=== PATIENT | female | born 1990 | race African-American/Black ===

== ENCOUNTER 2017-04-26 19:50 | Emergency (ER) | payer OTHER ==
[~2017-04-26] VITALS: Ht 172.7 cm; Wt 72.0 kg
[~2017-04-26 19:50] MED LIST: FERR-55 PO; PREN-46 PO
[2017-04-26 19:58] VITALS: Ht 172.7 cm; Wt 72.0 kg
[2017-04-26] MEDS ORDERED: LIDOCAINE/MYLANTA 40 ML BTL PO ONE (21:30)
--- NOTE | 2017-04-26 21:53 | ERD ---
ER Documentation Chief Complaint Date/Time DATE: 04/26/17 TIME: 21:52 Chief Complaint epigastric pain radaitring to right back HPI 26-year-old female presents here in emergency department for complaints of epigastric pain radiating to the back started 2 days ago. Patient describes the pain as sharp pain, 6/10 scale, not better with anything, it radiates in the mid chest area. Patient has history of Crohn's disease. Patient is also complain of right lower quadrant abdominal pain sharp pain, 6/10 scale, accompanying of his symptoms. Patient did not take any medications to symptoms. Patient denies any fever or chills. Patient denies any diarrhea or constipation. ROS All systems reviewed and are negative except as per history of present illness. Medications Home Meds Reported Medications Ferrous Sulfate* (Ferrous Sulfate*) 325 Mg Tablet, 325 MG PO 04/27/13 Vit #108/Iron/Fa ( ONE TABLET) 1 Each Tablet, 1 EACH PO D 04/27/13 Allergies Allergies: Coded Allergies: No Known Drug Allergies (Verified Allergy, Unknown, 04/27/13) PMhx/Soc Medical and Surgical Hx: pt denies Surgical Hx Hx Miscellaneous Medical Probl: Yes (Crohn's ) Hx Alcohol Use: No Hx Substance Use: No Hx Tobacco Use: No Smoking Status: Never smoker FmHx Family History: No coronary disease, No diabetes, No other Physical Exam Vitals Vital Signs Date Time Temp Pulse Resp B/P Pulse Ox O2 Delivery O2 Flow Rate FiO2 04/26/17 19:58 98.6 82 20 173/80 100 Physical Exam GENERAL: The patient is well developed and appropriate for usual state of health, in no apparent distress. CHEST: Clear to auscultation bilaterally. There are no rales, wheezes or rhonchi. HEART: Regular rate and rhythm. No murmurs, clicks, rubs or gallops. No S3 or S4. ABDOMEN: Soft, nontender and nondistended. Good bowel sounds. No rebound or guarding. No gross peritonitis. No gross organomegaly or masses. No Castillo sign or McBurney point tenderness. BACK: No midline or flank tenderness. EXTREMITIES: Equal pulses bilaterally. There is no peripheral clubbing, cyanosis or edema. No focal swelling or erythema. Full range of motion. Grossly neurovascularly intact. NEURO: Alert and oriented. Cranial nerves 2-12 intact. Motor strength in all 4 extremities with 5/5 strength. Sensation grossly intact. Normal speech and gait. SKIN: There is no apparent rash or petechia. The skin is warm and dry. HEMATOLOGIC AND LYMPHATIC: There is no evidence of excessive bruising or lymphedema. No gross cervical, axillary, or inguinal lymphadenopathy. Result Diagram: 04/26/17214604/26/172146 Results 24 hrs Laboratory Tests Test 04/26/17 21:47 White Blood Count 3.710^3/ul Red Blood Count 4.6210^6/ul Hemoglobin 11.9g/dl Hematocrit 38.4% Mean Corpuscular Volume 83.1fl Mean Corpuscular Hemoglobin 25.8pg Mean Corpuscular Hemoglobin Concent 31.0g/dl Red Cell Distribution Width 16.5% Platelet Count 21567^3/UL Mean Platelet Volume 9.5fl Neutrophils % 45.5% Lymphocytes % 39.7% Monocytes % 13.7% Eosinophils % 0.5% Basophils % 0.3% Nucleated Red Blood Cells % 0.0/100WBC Neutrophils # 1.710^3/ul Lymphocytes # 1.510^3/ul Monocytes # 0.510^3/ul Eosinophils # 0.010^3/ul Basophils # 0.010^3/ul Nucleated Red Blood Cells # 0.010^3/ul Urine Color LT. YELLOW Urine Clarity CLEAR Urine pH 6.0 Urine Specific [place] <=1.005 Urine Ketones NEGATIVE Urine Nitrite NEGATIVE Urine Bilirubin NEGATIVE Urine Urobilinogen 0.2 E.U./dL Urine Leukocyte Esterase NEGATIVE Urine Microscopic RBC 0-2/HPF Urine Microscopic WBC 2-5/HPF Urine Squamous Epithelial Cells MANY Urine Bacteria RARE Urine Hemoglobin TRACE Urine Glucose NEGATIVE% Urine Total Protein NEGATIVE Sodium Level 144mmol/L Potassium Level 3.8mmol/L Chloride Level 109mmol/L Carbon Dioxide Level 24mmol/L Anion Gap 15 Blood Urea Nitrogen 8mg/dl Creatinine 0.79mg/dl Glucose Level 84mg/dl Calcium Level 9.2mg/dl Total Bilirubin 0.0mg/dl Direct Bilirubin 0.00mg/dl Indirect Bilirubin 0.0mg/dl Aspartate Amino Transf (AST/SGOT) 22IU/L Alanine Aminotransferase (ALT/SGPT) 30IU/L Alkaline Phosphatase 61IU/L Total Protein 7.3g/dl Albumin 4.2g/dl Globulin 3.10g/dl Albumin/Globulin Ratio 1.35 Lipase 39U/L Current Medications Medications (Trade) Dose Ordered Sig/[place] Route PRN Reason Start Time Stop Time Status Last Admin Dose Admin Miscellaneous Medication (Gi Cocktail (2)) 40 ml ONCE ONCE PO 04/26/17 21:30 04/26/17 21:31 DC 04/26/17 21:45 GI cocktail given here in emergency department. EKG was done, read by me and is normal sinus rhythm at a rate of 55, normal axis , there is no ST changes or changes in the EKG that indicates any cardiac emergencies at this time. Patient's EKG was also reviewed by Dr. Mahoney. Impression: no acute findings on EKG PROCEDURE: CT ABDOMEN/PELVIS WITHOUT CONTRAST CLINICAL INDICATION: 26-year-old female with abdominal pain. TECHNIQUE: The study was performed utilizing a [employer] VCT 64-slice CT scanner. Direct axial sections were obtained through the abdomen and pelvis without the use of intravenous contrast material. Sagittal and coronal reformations were obtained. One or more of the following dose reduction techniques were utilized: automated exposure control, adjustment of the mA and/ or kV according to patient's size or use of iterative reconstruction technique. The images were reviewed on a PACS workstation. CTD/vol = 8.7 mGy; Total Exam DLP = 446.1 mGy-cm. COMPARISON: None. FINDINGS: The lung bases are unremarkable. There is no evidence for significant pleural effusion. The liver has a normal size and contour without focal areas of abnormal density. No intrahepatic nor extrahepatic biliary ductal dilatation is seen. The gallbladder demonstrates no wall thickening nor pericholecystic fluid. No biliary stones are evident. The pancreas is without areas of abnormal attenuation. The spleen is identified and has a normal size without abnormal density. The adrenal glands are unremarkable. The kidneys are without abnormal density. No hydroureteronephrosis nor nephroureterolithiasis is evident. The urinary bladder contains urine. There is mild. Focal soft tissue infiltration. There is no evidence for bowel obstruction. The appendix is diminutive and is without abnormal thickening or surrounding inflammatory reaction. The uterus is anteflexed. There is mild pelvic free fluid. The aortoiliac vessels are without aneurysmal dilatation. The osseous structures are intact. IMPRESSION: 1. No CT evidence for obstructive uropathy or renal calculi. 2. Mild nonspecific umbilical soft tissue infiltration. Clinical correlation is necessary. 3. Diminutive appendix without periappendiceal inflammatory changes. 4. Mild pelvic free fluid. .Peewee Mayo MD, MD Date Time Electronically viewed and signed by .Peewee Mayo MD, MD on 04/26/2017 23:02 .M/ CC: ELEUTERIO VIZCARRA RN PSYCH PROCEDURE: CHEST - 1 VIEW CLINICAL INDICATION: 26-year-old female with chest/abdominal pain. TECHNIQUE: A single frontal PA erect view of the chest was performed. The images were reviewed on a PACS workstation. COMPARISON: None. FINDINGS: The cardiomediastinal silhouette has a normal appearance. There is no evidence for an infiltrate. The pulmonary vascularity is within normal limits. There is no evidence for pneumothorax or pneumomediastinum. The osseous structures are intact. IMPRESSION: No evidence for active cardiopulmonary disease. .Peewee Mayo MD, MD Date Time Electronically viewed and signed by .Peewee Mayo MD, MD on 04/26/2017 22:47 .M/ CC: ELEUTERIO VIZCARRA RN PSYCH Procedures/[facility] Medical Decision Making: Patient's epigastric pain nonspecific at this time, possibly from gastritis or acid reflux disease. Patient does not have any symptoms of any cardiopulmonary emergencies at this time. Patient's chest x- rays number, EKG does not show any changes indicating cardiac emergencies at this time. Lower abdominal pain nonspecific at this time, possible Crohn's flareup, can be also viral. There is low suspicion for abdominal emergencies at this time. Patients abdominal exam is normal at this time. Patients radiology exam does not show any abdominal emergencies at this time. There is low suspicion for appendicitis, cholecystitis, abdominal aortic aneurysms or peritonitis at this time. There is low suspicion for sepsis. Patient appears well and is hemodynamically stable. Disposition: Home. Condition: Stable Prescription omeprazole, Mylanta, [place] Instructions: Patient is advised to take medications as prescribed. Patient is advised to rest, increase fluid intake and do brat diet for next 1-2 days and progress as tolerated. Patient is advised that if symptoms are worse, severe abdominal pain, uncontrolled vomiting, high fever, severe flank pain, worst signs and symptoms, to return to the emergency department immediately. Otherwise, patient can follow up with primary care doctor in 5-7 days. Departure Diagnosis: Primary Impression: Abdominal pain Abdominal location: lower abdomen, unspecified Qualified Code: R10.30 - Lower abdominal pain Additional Impression: Atypical chest pain Condition: Stable Patient Instructions: Abdominal Pain, Chest Pain, Uncertain Cause, Epigastric Pain (Uncertain Cause) Additional Instructions: Patient is advised to take medications as prescribed. Patient is advised to rest , increase fluid intake and do brat diet for next 1-2 days and progress as tolerated. Patient is advised that if symptoms are worse, severe abdominal pain , uncontrolled vomiting, high fever, severe flank pain, worst signs and symptoms , to return to the emergency department immediately. Otherwise, patient can follow up with primary care doctor in 5-7 days. ELEUTERIO VIZCARRA NP Apr 26, 2017 21:53
[2017-04-26 22:03] LABS: ADD SCAN DIFF NO
[2017-04-26 22:06] LABS: BASOPHILS % 0.3 % (0.0-2.0); EOSINOPHILS % 0.5 % (0.0-7.0); HEMATOCRIT 38.4 % (37.0-47.0); HEMOGLOBIN 11.9 g/dl (12.0-16.0); LYMPHOCYTES # 1.5 10^3/ul (0.8-2.9); LYMPHOCYTES % 39.7 % (15.0-51.0); MEAN CORPUSCULAR HEMOGLOBIN 25.8 pg (29.0-33.0); MEAN CORPUSCULAR VOLUME 83.1 fl (82.0-101.0); MEAN PLATELET VOLUME 9.5 fl (7.4-10.4); MONOCYTE # 0.5 10^3/ul (0.3-0.9); MONOCYTES % 13.7 % (0.0-11.0); NEUTROPHIL # 1.7 10^3/ul (1.6-7.5); NEUTROPHILS % 45.5 % (39.0-77.0); PLATELET COUNT 374 10^3/UL (140-415); RED BLOOD COUNT 4.62 10^6/ul (4.20-5.40); RED CELL DISTRIBUTION WIDTH 16.5 % (11.5-14.5); WHITE BLOOD COUNT 3.7 10^3/ul (4.8-10.8)
[2017-04-26 22:07] LABS: ADD UMIC YES; URINE BILIRUBIN (Dip) NEGATIVE (NEGATIVE); URINE BLOOD (Dip) TRACE (NEGATIVE); URINE COLOR LT. YELLOW (YELLOW); URINE GLUCOSE (Dip) NEGATIVE (NEGATIVE); URINE KETONES (Dip) NEGATIVE (NEGATIVE); URINE LEUKOCYTE ESTERASE (Dip) NEGATIVE (NEGATIVE); URINE NITRITE (Dip) NEGATIVE (NEGATIVE); URINE TOTAL PROTEIN (Dip) NEGATIVE (NEGATIVE); URINE UROBILINOGEN (Dip) 0.2 E.U./dL (0.1-1.0)
[2017-04-26 22:22] LABS: SQUAMOUS EPITHELIAL CELL,UR MANY; URINE RBCS 0-2 /HPF (0)
[2017-04-26 22:23] LABS: BACTERIA,URINE RARE
[2017-04-26 22:30] LABS: ALBUMIN/GLOBULIN RATIO 1.35
[2017-04-26 22:32] LABS: CALCIUM 9.2 mg/dl (8.4-10.2); CREATININE 0.79 mg/dl (0.44-1.00); POTASSIUM 3.8 mmol/L (3.5-5.1)
[2017-04-26 22:33] LABS: ALBUMIN 4.2 g/dl (3.3-4.9); TOTAL PROTEIN 7.3 g/dl (6.1-8.1)
--- NOTE | 2017-04-26 22:48 | RADRPT ---
PROCEDURE: CHEST - 1 VIEW CLINICAL INDICATION: 26-year-old female with chest/abdominal pain. TECHNIQUE: A single frontal PA erect view of the chest was performed. The images were reviewed on a PACS workstation. COMPARISON: None. FINDINGS: The cardiomediastinal silhouette has a normal appearance. There is no evidence for an infiltrate. T he pulmonary vascularity is within normal limits. There is no evidence for pneumothorax or pneumomed iastinum. The osseous structures are intact. IMPRESSION: No evidence for active cardiopulmonary disease. .Peewee Mayo MD, MD Date Time Electronically viewed and signed by .Peewee Mayo MD, on 04/26/2017 22:47 .M/
--- NOTE | 2017-04-26 23:02 | RADRPT ---
PROCEDURE: CT ABDOMEN/PELVIS WITHOUT CONTRAST CLINICAL INDICATION: 26-year-old female with abdominal pain. TECHNIQUE: The study was performed utilizing a [employer] VCT 64-slice CT scanner. Direct axia l sections were obtained through the abdomen and pelvis without the use of intravenous contrast mate rial. Sagittal and coronal reformations were obtained. One or more of the following dose reduction t echniques were utilized: automated exposure control, adjustment of the mA and/or kV according to pat ient's size or use of iterative reconstruction technique. The images were reviewed on a PACS workst at[employer]. CTD/vol = 8.7 mGy; Total Exam DLP = 446.1 mGy-cm. COMPARISON: None. FINDINGS: The lung bases are unremarkable. There is no evidence for significant pleural effusion. The liver has a normal size and contour without focal areas of abnormal density. No intrahepatic nor extrahepa tic biliary ductal dilatation is seen. The gallbladder demonstrates no wall thickening nor perichole cystic fluid. No biliary stones are evident. The pancreas is without areas of abnormal attenuation. The spleen is identified and has a normal size without abnormal density. The adrenal glands are unr emarkable. The kidneys are without abnormal density. No hydroureteronephrosis nor nephroureterolithi asis is evident. The urinary bladder contains urine. There is mild. Focal soft tissue infiltration. There is no evidence for bowel obstruction. The appendix is diminutive and is without abnormal thi ckening or surrounding inflammatory reaction. The uterus is anteflexed. There is mild pelvic free f luid. The aortoiliac vessels are without aneurysmal dilatation. The osseous structures are intact. IMPRESSION: 1. No CT evidence for obstructive uropathy or renal calculi. 2. Mild nonspecific umbilical soft tissue infiltration. Clinical correlation is necessary. 3. Diminutive appendix without periappendiceal inflammatory changes. 4. Mild pelvic free fluid. .Peewee Mayo MD, Date Time Electronically viewed and signed by .Peewee Mayo MD, MD on 04/26/2017 23:02 .Sherrie
[2017-04-26] MEDS ORDERED: MAG-19 PO (23:13)
[2017-04-26] MEDS ORDERED: OMEP20CA16 PO (23:13)
[2017-04-26] MEDS ORDERED: HYDR-906 PO (23:13)
== END 2017-04-26 23:33 | disposition left against medical advice (07) ==
LOC: FTE 19:50
DX: R10.30 Lower abdominal pain, unspecified (principal); R07.89 Other chest pain; R10.2 Pelvic and perineal pain
CPT/HCPCS: 36415; 71010; 74176; 80053; 81001; 83690; 85025; 93005; Z7502; Z7610

== ENCOUNTER 2017-08-19 11:05 | Emergency (ER) | payer SELFPAY ==
[~2017-08-19] VITALS: Wt 72.5 kg
[~2017-08-19 11:05] MED LIST changes: +HYDR-906 PO; +MAG-19 PO; +OMEP20CA16 PO
[2017-08-19] MEDS ORDERED: CIPR500T4 PO (15:22)
[2017-08-19] MEDS ORDERED: FAMO40TA38 PO (15:23)
[2017-08-19] MEDS ORDERED: ONDA4TAB14 PO (15:23)
[2017-08-19] MEDS ORDERED: PRED20TA PO (15:25)
[2017-08-19] MEDS ORDERED: SUCR1TAB56 PO (15:27)
== END 2017-08-19 12:29 | disposition left against medical advice (07) ==
LOC: FTE 11:05
DX: Z53.21 Procedure and treatment not carried out due to patient leaving prior to being seen by health care provider (principal)

== ENCOUNTER 2017-08-19 13:18 | Emergency (ER) | payer OTHER ==
[~2017-08-19] VITALS: Wt 72.0 kg
[2017-08-19] MEDS ORDERED: ONDANSETRON (ODT) 4 MG TAB ODT STA (14:35)
--- NOTE | 2017-08-19 14:35 | ERD ---
ER Documentation Chief Complaint Date/Time DATE: 08/19/17 TIME: 14:30 Chief Complaint ABD PAIN, NAUSEA, ONSET 3 DAYS HPI 27-year-old female who presents emergency department for generalized abdominal. No diarrhea for the last 24 hours. Vomited thrice for the last 24 hours with nonbloody and nonbilious emesis. LMP: 08/14/2017. A0. Denies headache, dizziness, blurry vision, neck pain, shoulder pain, chest pain , back pain, recent exposure to any illness, recent travel, recent use of antibiotics in the last 3 months, fever, chills. No known drug allergies. Past medical history of Crohn's disease. No surgeries. Does not take any prescription medication at home. Social: Not working at this time. Smokes 4-5 sticks of cigarettes a day. Denies use of alcohol, use of illegal drugs. ROS All systems reviewed and are negative except as per history of present illness. Medications Home Meds Active Scripts Sucralfate* (Carafate*) 1 Gm Tab, 1 GM PO BID, #60 TAB Prov:FLORY OLIVEIRA 08/19/17 Prednisone* (Prednisone*) 20 Mg Tab, 40 MG PO DAILY for 7 Days, TAB Prov:FLORY OLIVEIRA 08/19/17 Ondansetron (Ondansetron Odt) 4 Mg Tab.rapdis, 4 MG PO Q8 Y for NAUSEA AND/OR VOMITING, #20 TAB Prov:FLORY OLIVEIRA 08/19/17 Famotidine* (Pepcid*) 40 Mg Tablet, 40 MG PO DAILY, #30 TAB Prov:FLORY OLIVEIRA 08/19/17 Ciprofloxacin Hcl* (Ciprofloxacin Hcl*) 500 Mg Tablet, 500 MG PO BID for 7 Days , TAB Prov:FLORY OLIVEIRA 08/19/17 Hydrocodone/Acetaminophen ([place] 5-325 Tablet) 1 Each Tablet, 1 TAB PO Q6H Y for PAIN, #20 TAB Prov:ELEUTERIO VIZCARRA NP 04/26/17 Magaldrate/Simethicone* (Mylanta*) 355 Ml Susp, 30 ML PO QID Y for GASTROINTESTINAL UPSET, #1 BOTTLE Prov:ELEUTERIO VIZCARRA NP 04/26/17 Omeprazole* (Omeprazole*) 20 Mg Capsule., 20 MG PO DAILY, #30 Prov:ELEUTERIO VIZCARRA [employer] 04/26/17 Reported Medications Ferrous Sulfate* (Ferrous Sulfate*) 325 Mg Tablet, 325 MG PO 04/27/13 Vit #108/Iron/Fa ( ONE TABLET) 1 Each Tablet, 1 EACH PO D 04/27/13 Allergies Allergies: Coded Allergies: No Known Drug Allergies (Verified Allergy, Unknown, 04/27/13) PMhx/Soc Hx Miscellaneous Medical Probl: Yes (Crohn's ) Hx Alcohol Use: No Hx Substance Use: No Hx Tobacco Use: No Physical Exam Vitals Vital Signs Date Time Temp Pulse Resp B/P Pulse Ox O2 Delivery O2 Flow Rate FiO2 08/19/17 15:53 98.6 71 18 128/85 98 Room Air 08/19/17 13:21 98.6 102 17 139/85 98 Physical Exam Const: [] Head: Atraumatic Eyes: Normal Conjunctiva ENT: Normal External Ears, Nose and Mouth. Neck: Full range of motion..~ No meningismus. Resp: Clear to auscultation bilaterally Cardio: Regular rate and rhythm, no murmurs Abd: Soft, non tender, non distended. Normal bowel sounds. Active bowel sounds. There is no right upper/right lower/epigastric/left upper/left lower abdominal tenderness and light and deep palpation. Negative on Rovsing sign. Negative Pipo sign. Negative and psoas sign. Able to jump 10 times without developing abdominal pain. Able to walk across/inside the room 5 times without developing abdominal pain. No peritoneal signs. Skin: No petechiae or rashes Back: No midline or flank tenderness. No CVA tenderness. Ext: No cyanosis, or edema Neur: Awake and alert Psych: Normal Mood and Affect Results 24 hrs Laboratory Tests Test 08/19/17 14:42 Urine Color YELLOW Urine Clarity CLOUDY Urine pH 5.0 Urine Specific [place] 1.023 Urine Ketones NEGATIVEmg/dL Urine Nitrite NEGATIVEmg/dL Urine Bilirubin NEGATIVEmg/dL Urine Urobilinogen NEGATIVEmg/dL Urine Leukocyte Esterase NEGATIVELeu/ul Urine Microscopic RBC 1/HPF Urine Microscopic WBC 3/HPF Urine Squamous Epithelial Cells MODERATE/HPF Urine Mucus FEW/HPF Urine Hemoglobin NEGATIVEmg/dL Urine Glucose NEGATIVEmg/dL Urine Total Protein NEGATIVEmg/dl Current Medications Medications (Trade) Dose Ordered Sig/[place] Route PRN Reason Start Time Stop Time Status Last Admin Dose Admin Ondansetron HCl (Zofran Odt) 4 mg ONCE STAT ODT 08/19/17 14:35 08/19/17 14:37 DC 08/19/17 14:48 Miscellaneous Medication (Gi Cocktail (2)) 40 ml ONCE ONCE PO 08/19/17 15:00 08/19/17 15:01 DC 08/19/17 14:49 Procedures/MDM 27-year-old female who presents emergency department for generalized abdominal. No diarrhea for the last 24 hours. Vomited thrice for the last 24 hours with nonbloody and nonbilious emesis. LMP: 08/14/2017. A0. Denies headache, dizziness, blurry vision, neck pain, shoulder pain, chest pain , back pain, recent exposure to any illness, recent travel, recent use of antibiotics in the last 3 months, fever, chills. No known drug allergies. Past medical history of Crohn's disease. No surgeries. Does not take any prescription medication at home. Social: Not working at this time. Smokes 4-5 sticks of cigarettes a day. Denies use of alcohol, use of illegal drugs. Physical exam: Respirations even and unlabored. Lung sounds are clear to auscultation. Active bowel sounds. There is no right upper/right lower/ epigastric/left upper/left lower abdominal tenderness and light and deep palpation. Negative on Rovsing's sign. Negative Wrens sign. Negative and psoas sign. Able to jump 10 times without developing abdominal pain. Able to walk across/inside the room 5 times without developing abdominal pain. No peritoneal signs. No CVA tenderness. Disease process was explained to the patient. Patient verbalized understanding and agreed with the diagnostic test, treatment, plan of care. POC urine : Negative. Urinalysis: Negative. Treatment: Zofran ODT. GI cocktail. P.o. challenge. Reevaluation: Respirations even and unlabored. Lung sounds are clear to auscultation. Active bowel sounds. There is no right upper/right lower/ epigastric/left upper/left lower abdominal tenderness and light and deep palpation. Negative on Rovsing's sign. Negative Wrens sign. Negative and psoas sign. Able to jump 10 times without developing abdominal pain. Able to walk across/inside the room 5 times without developing abdominal pain. No peritoneal signs. No CVA tenderness. Differential diagnosis: Appendicitis versus cholecystitis versus pancreatitis versus diverticulitis versus colitis versus ileus versus gastritis versus urinary tract infection Diagnosis: Abdominal pain. Prescription: Zofran. Ciprofloxacin. Pepcid. Follow-up with primary care physician the next 24-48 hours. PCP to refer patient to director of retail operations if symptoms persist.Come back here in the emergency department for any new symptoms or any worsening of symptoms. All questions and concerns are answered. Patient verbalized understanding and agreed with the plan of care. Hemodynamically stable on discharge. Departure Diagnosis: Primary Impression: Abdominal pain Condition: Stable Additional Instructions: Follow-up with primary care physician the next 24-48 hours. PCP to refer patient to director of retail operations if symptoms persist.Come back here in the emergency department for any new symptoms or any worsening of symptoms. All questions and concerns are answered. Patient verbalized understanding and agreed with the plan of care. FLORY OLIVEIRA Aug 19, 2017 14:35
[2017-08-19] MEDS ORDERED: LIDOCAINE/MYLANTA 40 ML BTL PO ONE (15:00)
[2017-08-19 15:09] LABS: ADD UMIC YES; UR ASCORBIC ACID NEGATIVE (NEGATIVE); UR BILIRUBIN (Dip) NEGATIVE (NEGATIVE); UR BLOOD (Dip) NEGATIVE (NEGATIVE); UR CLARITY CLOUDY (CLEAR); UR COLOR YELLOW (YELLOW); UR GLUCOSE (Dip) NEGATIVE (NEGATIVE); UR KETONES (Dip) NEGATIVE (NEGATIVE); UR LEUKOCYTE ESTERASE (Dip) NEGATIVE Leu/ul (NEGATIVE); UR MUCUS FEW /HPF (NONE SEEN); UR NITRITE (Dip) NEGATIVE (NEGATIVE); UR RBC 1 /HPF (0-5); UR SPECIFIC GRAVITY (Dip) 1.023 (1.003-1.030); UR SQUAMOUS EPITHELIAL CELL MODERATE /HPF (FEW); UR TOTAL PROTEIN (Dip) NEGATIVE (NEGATIVE); UR UROBILINOGEN (Dip) NEGATIVE (NEGATIVE)
[2017-08-19] MEDS ORDERED: CIPR500T4 PO (15:22)
[2017-08-19] MEDS ORDERED: FAMO40TA38 PO (15:23)
[2017-08-19] MEDS ORDERED: ONDA4TAB14 PO (15:23)
[2017-08-19] MEDS ORDERED: PRED20TA PO (15:25)
[2017-08-19] MEDS ORDERED: SUCR1TAB56 PO (15:27)
[2017-08-19 15:53] VITALS: BP 128/85; PULSE 71; RESP 18; TEMP 98.6
== END 2017-08-19 15:54 | disposition home or self-care (01) ==
LOC: FTE 13:18
DX: R10.84 Generalized abdominal pain (principal)
CPT/HCPCS: 81001; Z7502; Z7610; 99284

== ENCOUNTER 2019-04-17 21:45 | Emergency (ER) | payer SELFPAY ==
[~2019-04-17 21:45] MED LIST changes: +CIPR500T4 PO; +FAMO40TA66 PO; +HYDR-4011 PO; -HYDR-906 PO; +ONDA4TAB14 PO; +PRED20TA PO; +SUCR1TAB56 PO
== END 2019-04-17 22:44 | disposition left against medical advice (07) ==
LOC: E/R 21:45
DX: Z53.21 Procedure and treatment not carried out due to patient leaving prior to being seen by health care provider (principal)

== ENCOUNTER 2019-07-27 08:49 | Emergency (ER) | payer OTHER ==
[~2019-07-27] VITALS: Ht 170.2 cm; Wt 75.0 kg
[~2019-07-27 08:49] MED LIST changes: +IBUP800T48 PO; -OMEP20CA16 PO; +OMEP20CA17 PO; -PREN-46 PO; +PRENATAL ONE T1 EACH PO; +SIME180C4 PO
[2019-07-27 08:51] VITALS: BP 132/84; PULSE 118; RESP 18; Ht 170.2 cm; Wt 75.0 kg
[2019-07-27] MEDS ORDERED: morphine 4 MG/ML VIAL IV STA (09:18)
[2019-07-27] MEDS ORDERED: ONDANSETRON 4 MG INJ IV STA (09:18)
[2019-07-27] MEDS ORDERED: SOD CHLORIDE 0.9% 500 ML IV STA (09:18)
[2019-07-27] MEDS ORDERED: FAMOTIDINE 20 MG INJ IV ONE (09:30)
== END 2019-07-27 11:05 | disposition home or self-care (01) ==
LOC: FTE 08:49
DX: R10.84 Generalized abdominal pain (principal)
CPT/HCPCS: 36415; 76705; 80053; 81001; 81025; 85025; 96361; 96374; 96375; J2270; J2405; J7040; Z7502; Z7610; 81003